=== PATIENT | female | born 1950 | race Caucasian/White ===

== ENCOUNTER 2017-10-11 11:01 | Outpatient (CLI) | payer MEDICARE, BC | END 2017-10-11 11:02 | disposition home or self-care (01) | LOC: BICRAD 11:01 | PROVIDERS: ATTEND Family Medicine | DX: J20.9 Acute bronchitis, unspecified (principal) | CPT/HCPCS: 71046 ==

== ENCOUNTER 2018-02-22 12:53 | Outpatient (CLI) | payer MEDICARE, BC | END 2018-02-22 12:54 | disposition home or self-care (01) | LOC: BICMAMMO 12:53 | PROVIDERS: ATTEND Family Medicine | DX: N63.10 Unspecified lump in the right breast, unspecified quadrant (principal); R92.1 Mammographic calcification found on diagnostic imaging of breast; Z85.43 Personal history of malignant neoplasm of ovary | CPT/HCPCS: 76642; 77066; G0279 ==

== ENCOUNTER 2018-11-23 09:13 | Outpatient (CLI) | payer MEDICARE, BC ==
--- NOTE | 2018-11-23 10:19 | MRI ---
MRI LUMBAR SPINE: History: Lumbar radiculopathy, M54.16. Technique: Multiplanar, multisequence noncontrast enhanced MR images lumbar spine obtained. FINDINGS: T12-L1: Unremarkable. L1-2: Minimal facet hypertrophy seen. The central canal and neural foramina are patent. L2-3: Disc desiccation is seen. There is a broad based disc bulge extending into the left L2-3 neural foramen. The exiting left L2 nerve root is not significantly compressed. L3-4: There is some mild disc desiccation. There is bilateral facet and ligamentum flavum hypertrophy resulting in mild L3-4 central and lateral recess stenosis. Minimal but not significant evidence of neural foraminal narrowing is seen. L4-5: Disc desiccation is seen. Disc space height loss is seen. There is some Modic type I changes se en in the anterior inferior endplate of L4 and superior anterior endplate of L5. There is a broad bas ed disc bulge with bilateral facet and ligamentum flavum hypertrophy resulting in mild to moderate ce ntral and lateral recess stenosis. L5-S1: Disc desiccation is seen. There is mild facet hypertrophy. The central canal is patent. There is moderate left neural foraminal narrowing due to facet hypertrophy. IMPRESSION: Disc space height loss with endplate changes at L4-5. POS: ROSALIA
== END 2018-11-23 09:14 | disposition home or self-care (01) ==
LOC: BICMRI 09:13
PROVIDERS: ATTEND Anesthesiology Pain Medicine
DX: M54.16 Radiculopathy, lumbar region (principal)
CPT/HCPCS: 72148

== ENCOUNTER 2019-04-18 10:44 | Outpatient (CLI) | payer MEDICARE, BC ==
--- NOTE | 2019-04-18 13:46 | MMO ---
Bilateral MAMMO Bilat Screen [facility]. CLINICAL HISTORY: Patient is 68 years old and is seen for screening. The patient has the following family history of breast cancer: sister, at age 60. The patient has a history of ovarian cancer at age 17. VIEWS: The views performed were: bilateral craniocaudal with tomosynthesis and bilateral mediolateral oblique with tomosynthesis. FILMS COMPARED: The present examination has been compared to prior imaging studies performed at [facility] on 06/20/2012, 12/31/2014 and 02/22/2018, and at [facility] on 06/16/2011. MAMMOGRAM FINDINGS: There are scattered fibroglandular densities. There are stable benign appearing calcifications seen in both breasts. There are no suspicious masses, suspicious calcifications, or new areas of architectural distortion. IMPRESSION: THERE IS NO MAMMOGRAPHIC EVIDENCE OF MALIGNANCY. A ROUTINE FOLLOW-UP MAMMOGRAM IN 1 YEAR IS RECOMMENDED. THE RESULTS OF THIS EXAM WERE SENT TO THE PATIENT. ACR BI-RADS Category 2 - Benign finding MAMMOGRAPHY NOTE: 1. A negative mammogram report should not delay a biopsy if a dominant of clinically suspicious mass is present. 2. Approximately 10% to 15% of breast cancers are not detected by mammography. 3. Adenosis and dense breasts may obscure an underlying neoplasm. Reported by: ISABELA OBANDO MD Electonically Signed: [id number]
== END 2019-04-18 10:45 | disposition home or self-care (01) ==
LOC: BICMAMMO 10:44
PROVIDERS: ATTEND Family Medicine
DX: Z12.31 Encounter for screening mammogram for malignant neoplasm of breast (principal); Z85.43 Personal history of malignant neoplasm of ovary; Z80.3 Family history of malignant neoplasm of breast
CPT/HCPCS: 77063; 77067

== ENCOUNTER 2019-06-22 09:56 | Outpatient (CLI) | payer MEDICARE, BC ==
--- NOTE | 2019-06-22 12:04 | MRI ---
MRI cervical spine noncontrast: DATE: 06/22/2019 HISTORY: 68-year-old female with cervical radiculopathy. FINDINGS: Many of the images are degraded by patient motion, especially the T2 weighted axial sequence. Vertebr al body heights are maintained. No major subluxation. No major bone marrow signal abnormality. Mild Modic type I bone marrow changes at C5-6 and C7-T1. Cervical spinal cord is normal in size and signal . Cervical spinal canal is diffusely small in caliber on a congenital basis due to developmentally short pedicles. This is exacerbated by cervical spondylosis. Absent or small left lobe of thyroid gla nd. Facet DJD at left upper cervical spine, moderate to severe at C2-3, and moderate at C3-4 and C5-4-5. Mild to moderate left facet DJD at C7-T1. No high-grade facet DJD on the right side. Disc spa ce narrowing is mild to moderate at C5-6, moderate at C6-C7, and moderate at C7-T1. The C2-3, C3-4, and C4-5 disc spaces are maintained. C2-3: No high-grade central stenosis or high-grade neural foraminal stenosis. C3-4: Bilateral uncinate process osteophytes encroach upon bilateral neural foramina, causing mild bi lateral neural foraminal stenosis. Mild ligamentum flavum thickening. Mild central spinal canal stenosis. C4-5: Small bilateral uncinate process osteophytes encroach upon bilateral neural foramina. Mild to m oderate right neural foraminal stenosis. Moderate left neural foraminal stenosis. Broad-based and central disc-osteophyte complex encroaches upon anterior aspect of spinal canal. Moderate central spi nal canal stenosis. C5-6: Mild broad-based disc-osteophytic bar complex encroaches upon anterior aspect of spinal canal. Mild ligamentum flavum thickening. Moderate sized bilateral uncinate process osteophytes encroach upon bilateral neural foramina, causing severe right neural foraminal stenosis and moderate to severe left neural foraminal stenosis. Moderate to severe central spinal canal stenosis. C6-7: Broad-based disc-osteophytic bar complex abuts the ventral surface of spinal cord. Mild ligamen kellie flavum thickening. Moderate to severe central spinal canal stenosis. Moderate to large bilateral uncinate process osteophytes. Severe bilateral neural foraminal stenosis. C7-T1: No central stenosis. Mild right neural foraminal stenosis. Severe left neural foraminal stenos is. IMPRESSION: 1.) Moderate cervical spondylosis consisting of left upper facet osteoarthrosis, and mid-lower modera te degenerative disc disease. 2) developmentally small caliber spinal canal exacerbated by cervical spondylosis. 3) multilevel high-grade central spinal canal stenosis and multilevel high-grade neural foraminal arcelia nosis.
--- NOTE | 2019-06-22 12:08 | MRI ---
MRI thoracic spine noncontrast: DATE: 06/22/2019 HISTORY: 68-year-old female with "M 48.04 thoracic spinal stenosis " FINDINGS: Vertebral body heights are maintained. No major bone marrow signal abnormality. Multilevel mild to mo derate disc space narrowing at several levels in the mid thoracic spine. No central spinal canal stenosis at any level. Thoracic spinal cord is normal in size and signal. No syringohydromyelia. No h igh-grade neural foraminal stenosis identified. No major pathology of perivertebral spaces identified. No high-grade scoliosis. A few tiny disc protrusions or disc-osteophyte complexes at gato ral levels in at mid and lower thoracic spine, which do not contact spinal cord or frankly impinge on nerve roots. IMPRESSION: 1. Mild thoracic spondylosis. 2. Otherwise negative.
== END 2019-06-22 09:57 | disposition home or self-care (01) ==
LOC: TBSIIMAG 09:56
PROVIDERS: ATTEND Anesthesiology Pain Medicine
DX: M47.22 Other spondylosis with radiculopathy, cervical region (principal); M48.04 Spinal stenosis, thoracic region; M48.02 Spinal stenosis, cervical region; M47.814 Spondylosis without myelopathy or radiculopathy, thoracic region; M48.03 Spinal stenosis, cervicothoracic region
CPT/HCPCS: 72141; 72146

== ENCOUNTER 2019-10-17 12:57 | Outpatient (CLI) | payer MEDICARE, BC ==
--- NOTE | 2019-10-17 14:49 | ULT ---
THYROID ULTRASOUND INDICATION: History of thyroid nodule and left-sided thyroidectomy TECHNIQUE: Grayscale and color Doppler images were obtained of the thyroid gland. COMPARISON: Prior thyroid ultrasound dated July 23, 2003 FINDINGS: Right thyroid lobe: The right thyroid lobe measures 1.8 x 2.0 x 4.5 cm. There is a 2.7 x 1.5 x 2.1 cm isoechoic solid nodule with well-defined borders within the inferior pole the right thyroid lobe. The lesion is wider than it is tall without associated calcifications. This is consistent with a AMIRA DS 3 lesion. There is an additional 5 x 4 x 3 mm solid, isoechoic nodule within the right mid thyroid lobe consistent with a TIRADS 3 lesion. Thyroid isthmus: The thyroid isthmus measures 0.41 cm. Left thyroid lobe: Surgically absent IMPRESSION: 1. New TIRADS 3 lesion involving the inferior pole of the right thyroid lobe. This lesion is 2.7 cm i n size. Recommend consideration for ultrasound-guided FNA. 2. 5 mm TIRADS 3 lesion within the mid right thyroid gland. No additional follow-up is recommended. 3. Left thyroidectomy
== END 2019-10-17 12:58 | disposition home or self-care (01) ==
LOC: BICULT 12:57
PROVIDERS: ATTEND Internal Medicine Endocrinology, Diabetes & Metabolism
DX: E04.1 Nontoxic single thyroid nodule (principal); E07.9 Disorder of thyroid, unspecified; Z85.850 Personal history of malignant neoplasm of thyroid
CPT/HCPCS: 76536

== ENCOUNTER 2019-11-07 12:42 | Outpatient (CLI) | payer MEDICARE, BC ==
--- NOTE | 2019-11-07 13:45 | MMO ---
Right Breast MAMMO Unilat Diag [facility]. CLINICAL HISTORY: Patient is 69 years old and is seen for diagnostic exam. The patient has the following family history of breast cancer: sister, at age 60. The patient has a history of ovarian cancer at age 17. VIEWS: The views performed were: right craniocaudal with tomosynthesis; right mediolateral oblique with tomosynthesis; right mediolateral with tomosynthesis; and right exaggerated craniocaudal. FILMS COMPARED: The present examination has been compared to prior imaging studies performed at [facility] on 12/31/2014, 02/22/2018, 04/18/2019 and 11/07/2019. This study has been interpreted with the assistance of computer-aided detection. MAMMOGRAM FINDINGS: There are scattered fibroglandular densities. There are no suspicious masses, suspicious calcifications, or new areas of architectural distortion. There are no mammographic or sonographic abnormalities to explain the patient's breast pain. The patient is referred back to her clinician. Negative imaging findings should not preclude biopsy if clinical findings are suspicious. IMPRESSION: THERE IS NO MAMMOGRAPHIC EVIDENCE OF MALIGNANCY. THE RESULTS OF THIS EXAM WERE SENT TO THE PATIENT. ACR BI-RADS Category 1 - Negative MAMMOGRAPHY NOTE: 1. A negative mammogram report should not delay a biopsy if a dominant of clinically suspicious mass is present. 2. Approximately 10% to 15% of breast cancers are not detected by mammography. 3. Adenosis and dense breasts may obscure an underlying neoplasm. Reported by: ISABELA OBANDO MD Electonically Signed: [id number]
--- NOTE | 2019-11-07 14:40 | ULT ---
LIMITED RIGHT BREAST ULTRASOUND: Date: 11/07/2019 PROVIDED CLINICAL HISTORY: Focal right breast and axillary pain. FINDINGS: Limited sonographic interrogation of the right breast is performed in the regions of patient pain. No sonographic abnormality is evident. Appearance of hypoechoic mass in the right axilla on transverse images does not persist in longitudinal or at real-time imaging. IMPRESSION: BI-RADS Category 1 - Negative. No sonographic or mammographic findings are evident to explain the pat ient's pain. Negative imaging findings should not preclude further evaluation of a clinically suspici ous finding. The patient is referred back to her clinician. POS: OFF
== END 2019-11-07 12:43 | disposition home or self-care (01) ==
LOC: BICMAMMO 12:42
PROVIDERS: ATTEND Family Medicine
DX: R22.31 Localized swelling, mass and lump, right upper limb (principal)
CPT/HCPCS: 76642; 77065; G0279

== ENCOUNTER 2020-03-11 12:41 | Outpatient (CLI) | payer MEDICARE, BC ==
--- NOTE | 2020-03-11 13:30 | MMO ---
Bilateral MAMMO Bilat Diag [facility]. CLINICAL HISTORY: Patient is 69 years old and is seen for diagnostic exam,palpable abnormality and pain in the right breast. The patient has the following family history of breast cancer: sister, at age 60. The patient has a history of ovarian cancer at age 17. VIEWS: The views performed were: bilateral craniocaudal with tomosynthesis; bilateral mediolateral oblique with tomosynthesis; and bilateral mediolateral with tomosynthesis. FILMS COMPARED: The present examination has been compared to prior imaging studies performed at [facility] on 04/18/2019, 11/07/2019 and 03/11/2020. This study has been interpreted with the assistance of computer-aided detection. MAMMOGRAM FINDINGS: There are scattered fibroglandular densities. Benign calcifications are noted. No mammographic or sonograhic abnormality is seen at the site of palpable concern in the left breast. There are no suspicious masses, suspicious calcifications, or new areas of architectural distortion. IMPRESSION: THERE IS NO MAMMOGRAPHIC EVIDENCE OF MALIGNANCY. A ROUTINE FOLLOW-UP MAMMOGRAM IN 1 YEAR IS RECOMMENDED. THE RESULTS OF THIS EXAM WERE SENT TO THE PATIENT. ACR BI-RADS Category 2 - Benign finding MAMMOGRAPHY NOTE: 1. A negative mammogram report should not delay a biopsy if a dominant of clinically suspicious mass is present. 2. Approximately 10% to 15% of breast cancers are not detected by mammography. 3. Adenosis and dense breasts may obscure an underlying neoplasm. Reported by: ETHEL COOK MD Electonically Signed: [id number]
--- NOTE | 2020-03-11 14:19 | ULT ---
LIMITED LEFT BREAST ULTRASOUND: 03/11/20 HISTORY: Pain and palpable abnormality of the 11 o'clock position of the left breast. FINDINGS: Correlation is made to mammogram of same date. Sonographic evaluation of the region of concern at the 11 o'clock positon of the left breast demonstr ates no abnormality. IMPRESSION: BIRADS 2: Benign Finding(s) Routine annual screening mammography (for women over age 40).
== END 2020-03-11 12:42 | disposition home or self-care (01) ==
LOC: BICMAMMO 12:41
PROVIDERS: ATTEND Family Medicine
DX: N63.20 Unspecified lump in the left breast, unspecified quadrant (principal)
CPT/HCPCS: 76642; 77066; G0279

== ENCOUNTER 2020-03-11 12:44 | Outpatient (CLI) | payer MEDICARE, BC ==
--- NOTE | 2020-03-11 14:19 | MRI ---
MR the lumbar spine without contrast INDICATION: 69-year-old female with acute low back pain that radiates down the left leg. The left leg radiculopathy has been present for one month. No recent trauma or lumbar spinal surgery reported. COMPARISON: MR the lumbar spine dated November 23, 2018 TECHNIQUE: Multiplanar multisequence MR images were obtained of lumbar spine without IV contrast. FINDINGS: Bone marrow: There is mild Modic endplate degenerative change at L4-5 that appears similar to the lemuel or. Distal spinal cord and conus: Normal. The conus seen to terminate at L1. Visualized retroperitoneum and paraspinal soft tissues: Normal. Vertebral levels: L5-S1: There is an asymmetric to the left broad-based disc bulge at L5-S1 with loss of disc space hei ght and facet hypertrophy inducing mild left neural foraminal narrowing which is stable to the prior exam.. L4-5: There is a broad-based disc osteophyte complex with facet hypertrophy and ligamentum flavum hyp ertrophy inducing mild central canal narrowing which is stable to the prior exam. There is grade 1 anterolisthesis of L4 and L5. Constellation of findings induces mild right neural foraminal narrowing which is stable to the prior exam. L3-4: There is a broad-based bulge with facet hypertrophy and ligament flavum hypertrophy inducing mi ld central canal narrowing with mild bilateral neural foraminal narrowing, left greater than right. This is stable to the prior exam. L2-3: There is a broad-based disc bulge with facet hypertrophy inducing mild central canal narrowing with mild bilateral neural foraminal narrowing, left greater than right. This is stable to the prior exam. L1-L2: No appreciable central canal or neuroforaminal narrowing. T12-L1: No appreciable central canal or neuroforaminal narrowing. IMPRESSION: 1. Stable moderate spondylosis of the lumbar spine. 2. Stable mild central canal narrowing at L2-3 through L4-5. 3. Stable mild neural foraminal narrowing as detailed above.
== END 2020-03-11 12:45 | disposition home or self-care (01) ==
LOC: BICMRI 12:44
PROVIDERS: ATTEND Anesthesiology Pain Medicine
DX: M47.26 Other spondylosis with radiculopathy, lumbar region (principal); M48.061 Spinal stenosis, lumbar region without neurogenic claudication; M48.07 Spinal stenosis, lumbosacral region
CPT/HCPCS: 72148

== ENCOUNTER 2020-06-20 05:47 | Day surgery (SDC) | payer MEDICARE, BC ==
[2020-06-16 15:12] VITALS: BMI 19.3
--- NOTE | 2020-06-19 12:31 | HP ---
HISTORY OF PRESENT ILLNESS: Ms. Dillon is a very pleasant 69-year-old woman known to our office for distant evaluation of lower back pain, who returns now with a request of Dr. Strange. My impression was regarding cervical stenosis, but she states she has no concern regarding her neck that is in fact her lower back and left lower extremity describing to me a pattern that best fits the L5 dermatome. She has no right lower extremity pains to speak of. She has been receiving injections in her back which provides her 7 to 10 days worth of relief in the leg, but then her pain returns. MRI from February of 2020 reveals moderate to severe lateral recess stenosis bilaterally at L5 as well as moderate foraminal stenosis bilaterally at L5. This could most certainly be a contributor to her pains particularly when considering the efficacy of her epidural steroid injection. PAST MEDICAL HISTORY: Significant for chronic pain syndrome, seasonal allergies, thyroid tumor. PAST SURGICAL HISTORY: Thyroid mass resection, left oophorectomy, hysterectomy, and urethral meatotomy. ALLERGIES: TO CODEINE, IODINE, SULFA DRUGS. CURRENT MEDICATIONS: 1. Tizanidine. 2. Biotin. 3. Lyrica. 4. [place]. 5. Clonazepam. PHYSICAL EXAMINATION: Deferred secondary to COVID telehealth visit. DIAGNOSIS: Lumbar radiculopathy. PLAN: Dr. Martin met with the patient, reviewed her imaging and advocated for an L4-5 decompression and a left L5 foraminotomy. He explained to the patient the risks, benefits, and alternatives to the procedure. The patient expressed understanding and elected to move forward with surgery as discussed. I do believe the patient is mentally competent and capable of making medical decisions for herself. We will move forward with surgery as planned. Job ID: [id number]
[2020-06-20] MEDS ORDERED: Bupivacaine HCl 0.5%/Epinephrine 1:200,000/PF 30 ml Vial ONE (06:15)
[2020-06-20] MEDS ORDERED: Thrombin 5000 UNITS/5 ML VIAL ONE (06:15)
[2020-06-20 06:53] LABS: #Basophils 0.1 thou/uL (0.0-0.2); #Eosinphils 0.4 thou/uL (0.0-0.7); #Lymphocytes 2.9 thou/uL (1.20-3.40); #Monocytes 0.9 thou/uL (0.11-0.59); %Basophils 1.2 % (0.0-1.0); %Lymphocytes 40.2 % (21.0-51.0); %Monocytes 12.2 % (0.0-10.0); %Neutrophils 41.4 % (42.0-75.0); Hemoglobin 12.8 g/dL (12.0-16.0); Mean Corpuscular HGB CONC 32.1 g/dL (32.0-36.0); Mean Corpuscular Hemoglobin 31.1 pg (27.0-31.0); Mean Corpuscular Volume 96.9 fL (78.0-98.0); Mean Platelet Volume 7.2 fL (7.4-10.4); Platelet Count 329 thou/uL (130-400); RBC Distribution Width 13.5 % (11.5-14.5); White Blood Cell (WBC) Count 7.2 thou/uL (4.8-10.8)
[2020-06-20 07:16] LABS: Anion Gap 12 mmol/L (10-20); BUN (Urea Nitrogen) 21 mg/dL (9.8-20.1); Calc. Creatinine Clearance 37 mL/min (70-130); Calcium 8.6 mg/dL (7.8-10.44); Carbon Dioxide 24 mmol/L (23-31); Chloride 111 mmol/L (98-107); Estimated GFR-MDRD 56; Glucose 96 mg/dL (83-110); Sodium 143 mmol/L (136-145)
[2020-06-20] MEDS ORDERED: Fentanyl 100 MCG/2 ML VIAL ONE (07:29)
[2020-06-20] MEDS ORDERED: Morphine 4 MG/ML VIAL ONE (08:26)
--- NOTE | 2020-06-20 09:52 | OP ---
DATE OF PROCEDURE: 06/20/2020 SCHEDULING MANAGER: Israel East PA-C INDICATION: Pain. DIAGNOSIS: Lumbar radiculopathy. PROCEDURES PERFORMED: L4-L5 lateral recess decompression, left L5 foraminotomy. ANESTHESIA: General. DESCRIPTION OF PROCEDURE: The patient was brought into the operating room and placed under general anesthesia. She was flipped from the supine to prone position on the operating room table. A linear incision was planned at the L4-L5 segment. After prepping and draping and after an appropriate preoperative pause, the incision was created. The soft tissues were swept left of midline. A self-retaining retractor was placed in the wound for optimal exposure. After confirming the appropriate level with C-arm fluoroscopy, high-speed cutting drill bit as well as 2, 3, and 4 mm Kerrisons were used to perform a laminectomy along the inferior aspect of L4 and the superior aspect of L5. After decompressing the lateral recesses at the L4-L5 segment, foraminotomy was performed along the proximal aspect of L5 on the left to decompress the exiting L5 nerve root. After completing the decompression, the wound was irrigated. Hemostasis was maintained throughout. The wound was then closed in anatomic layers, and a pressure dressing was applied. There were no known procedural complications. Job ID: [id number]
[2020-06-20] MEDS ORDERED: Ketorolac Tromethamine 30 MG/ML VIAL ONE (10:31)
[2020-06-20] MEDS ORDERED: traMADol HCl 50 MG TAB ONE (10:31)
== END 2020-06-20 11:45 | disposition home or self-care (01) ==
LOC: SDC 05:47
PROVIDERS: ATTEND Neurological Surgery
PROC: 01NB0ZZ Release Lumbar Nerve, Open Approach (ICD-10-PCS; principal; 2020-06-20)
DX: M54.16 Radiculopathy, lumbar region (principal); M48.061 Spinal stenosis, lumbar region without neurogenic claudication; G89.4 Chronic pain syndrome; E89.0 Postprocedural hypothyroidism; Z79.899 Other long term (current) drug therapy; Z88.2 Allergy status to sulfonamides; Z88.5 Allergy status to narcotic agent; Z91.041 Radiographic dye allergy status
CPT/HCPCS: 36415; 76000; 80048; 85025; 93005; 93010; J0670; J0690; J1885; J2270; J3010

== ENCOUNTER 2020-07-01 05:35 | Emergency (ER) | payer MEDICARE, BC ==
[2020-07-01] MEDS ORDERED: diphenhydrAMINE 50 MG/ML VIAL ONE ×2 (06:09→06:10)
[2020-07-01] MEDS ORDERED: Metoclopramide HCl 10 MG/2 ML VIAL ONE (06:09)
[2020-07-01 06:20] LABS: #Lymphocytes 1.7 thou/uL (1.20-3.40); #Monocytes 0.7 thou/uL (0.11-0.59); #Neutrophils 9.3 thou/uL (1.40-6.50); %Basophils 0.3 % (0.0-1.0); %Eosinophils 0.2 % (0.0-10.0); %Lymphocytes 14.7 % (21.0-51.0); %Monocytes 5.8 % (0.0-10.0); Hemoglobin 12.2 g/dL (12.0-16.0); Mean Corpuscular HGB CONC 32.6 g/dL (32.0-36.0); Mean Corpuscular Volume 95.2 fL (78.0-98.0); Mean Platelet Volume 7.2 fL (7.4-10.4); Platelet Count 391 thou/uL (130-400); RBC Distribution Width 13.1 % (11.5-14.5); Red Blood Cell (RBC) Count 3.94 mill/uL (4.20-5.40); White Blood Cell (WBC) Count 11.7 thou/uL (4.8-10.8)
[2020-07-01 06:49] LABS: ALT (SGPT) 7 U/L (8-55); AST (SGOT) 13 U/L (5-34); Albumin 3.7 g/dL (3.4-4.8); Alkaline Phosphatase 77 U/L (40-110); Anion Gap 15 mmol/L (10-20); BUN (Urea Nitrogen) 13 mg/dL (9.8-20.1); Bilirubin, Total 0.4 mg/dL (0.2-1.2); Calc. Creatinine Clearance 0 mL/min (70-130); Calcium 8.3 mg/dL (7.8-10.44); Carbon Dioxide 22 mmol/L (23-31); Chloride 105 mmol/L (98-107); Estimated GFR-MDRD 55; Globulin 2.8 g/dL (2.4-3.5); Glucose 157 mg/dL (83-110); Potassium 3.7 mmol/L (3.5-5.1); Protein, Total 6.5 g/dL (6.0-8.3); Sodium 138 mmol/L (136-145)
[2020-07-01] MEDS ORDERED: Labetalol HCl 100 MG/20 ML VIAL ONE (06:55)
[2020-07-01] MEDS ORDERED: Ketorolac Tromethamine 30 MG/ML VIAL ONE (06:55)
--- NOTE | 2020-07-01 07:07 | CT ---
CT OF THE BRAIN WITHOUT CONTRAST: DATE: 07/01/2020 HISTORY: Headaches for 2 days. COMPARISON: MRI brain dated 04/10/2018. TECHNIQUE: Multiple contiguous axial images were obtained in a CT of the brain without contrast. FINDINGS: The brain is normal in morphology and attenuation without focal lesions or confluent areas of infarct ion. There is no evidence of hydrocephalus, intracranial hemorrhage, or extra-axial fluid collection. The calvarium and overlying soft tissues are unremarkable. The visualized paranasal sinuses and masto id air cells are well aerated. IMPRESSION: No evidence of acute intracranial abnormality. POS: EAA
--- NOTE | 2020-07-01 07:34 | CT ---
CT lumbar spine noncontrast HISTORY: Low back pain. Recent surgery. FINDINGS: Vertebral body heights and alignment are maintained. L5 left laminectomy defect consistent with histologically described recent surgery. No adjacent fluid collections. Osteophytosis throughout the vertebral bodies and facets with multilevel disc bulges. Central canal s tenosis most severe at the L4-5 level. Foraminal stenoses greatest on the right at the L4-5 level in the left at the L5-S1 level. Images including the retroperitoneum show calcification of the arterial structures and bilateral comm on iliac artery stents. IMPRESSION : Recent postoperative changes lower lumbar spine. No evidence of complication. Prominent degenerative changes including significant central canal and foraminal stenoses, better det do on recent MRI. Atherosclerosis.
== END 2020-07-01 08:40 | disposition home or self-care (01) ==
LOC: ERS 05:35
DX: R51.9 Headache, unspecified (principal); F17.290 Nicotine dependence, other tobacco product, uncomplicated
CPT/HCPCS: 36415; 70450; 72131; 80053; 85025; J1200; J1885; J2765

== ENCOUNTER 2020-07-01 16:41 | Emergency (ER) | payer MEDICARE, BC, OTHER ==
[2020-07-01 18:51] LABS: #Lymphocytes 2.1 thou/uL (1.20-3.40); #Neutrophils 8.8 thou/uL (1.40-6.50); %Basophils 0.3 % (0.0-1.0); %Eosinophils 0.3 % (0.0-10.0); %Lymphocytes 17.3 % (21.0-51.0); %Monocytes 8.2 % (0.0-10.0); %Neutrophils 73.9 % (42.0-75.0); Hemoglobin 12.2 g/dL (12.0-16.0); Mean Corpuscular HGB CONC 33.2 g/dL (32.0-36.0); Mean Corpuscular Hemoglobin 31.3 pg (27.0-31.0); Mean Corpuscular Volume 94.3 fL (78.0-98.0); Mean Platelet Volume 7.1 fL (7.4-10.4); Platelet Count 361 thou/uL (130-400); RBC Distribution Width 13.1 % (11.5-14.5); Red Blood Cell (RBC) Count 3.89 mill/uL (4.20-5.40)
[2020-07-01] MEDS ORDERED: Metoclopramide HCl 10 MG/2 ML VIAL ONE (18:54)
[2020-07-01] MEDS ORDERED: Labetalol HCl 100 MG/20 ML VIAL ONE (18:54)
[2020-07-01] MEDS ORDERED: diphenhydrAMINE 50 MG/ML VIAL ONE ×3 (18:54→19:06)
[2020-07-01] MEDS ORDERED: Ketorolac Tromethamine 30 MG/ML VIAL ONE (18:54)
[2020-07-01] MEDS ORDERED: Acetaminophen 500 MG TAB ONE (18:55)
[2020-07-01 19:16] LABS: Bilirubin Negative (Negative); Blood, Urine 1+ (Negative); Clarity Clear (Clear); Glucose, Urine (Dipstick) Normal (Negative); Ketone, Urine Negative (Negative); Leukocyte 500 Leu/uL (Negative); Nitrite Negative (Negative); Protein, Urine (Dipstick) Negative (Neg-Trace); Specific Gravity, Urine 1.012 (1.002-1.036); Squamous Epithelial 0-3 HPF (0-3); Urobilinogen Normal mg/dL (Less than 2); WBC/HPF Greater than 50 HPF (0-3)
[2020-07-01 19:18] LABS: Bacteria/HPF 1+ HPF (None Seen)
[2020-07-01 19:21] LABS: ALT (SGPT) 8 U/L (8-55); AST (SGOT) 14 U/L (5-34); Albumin 3.8 g/dL (3.4-4.8); Alkaline Phosphatase 77 U/L (40-110); Anion Gap 13 mmol/L (10-20); BUN (Urea Nitrogen) 13 mg/dL (9.8-20.1); Bilirubin, Total 0.4 mg/dL (0.2-1.2); Calc. Creatinine Clearance 0 mL/min (70-130); Calcium 8.2 mg/dL (7.8-10.44); Carbon Dioxide 23 mmol/L (23-31); Chloride 105 mmol/L (98-107); Estimated GFR-MDRD 63; Globulin 2.5 g/dL (2.4-3.5); Glucose 125 mg/dL (83-110); Potassium 3.7 mmol/L (3.5-5.1); Protein, Total 6.3 g/dL (6.0-8.3); Sodium 137 mmol/L (136-145)
[2020-07-01] MEDS ORDERED: Magnesium 2 GM/50 ML BAG (IN WATER) ONE (20:11)
[2020-07-01] MEDS ORDERED: methylPREDNISolone Sod Succ/PF 125 MG/2 ML VIAL ONE (20:11)
[2020-07-01] MEDS ORDERED: cefTRIAXone\\ROCEPHIN 1 GM VIAL ONE (21:28)
[2020-07-02 16:09] LABS: SARS-CoV-2 MS2 Positive; SARS-CoV-2 N Gene Negative; SARS-CoV-2 S Gene Negative; SARS-CoV-2 by NAA Not Detected (NotDetected); SARS-CoV-2 orf1ab Negative
== END 2020-07-01 22:08 | disposition home or self-care (01) ==
LOC: ERS 16:41
DX: R51.9 Headache, unspecified (principal); N39.0 Urinary tract infection, site not specified; R50.9 Fever, unspecified; Z20.828 Contact with and (suspected) exposure to other viral communicable diseases; F17.290 Nicotine dependence, other tobacco product, uncomplicated; Z79.899 Other long term (current) drug therapy
CPT/HCPCS: 70450; 72131; 80053 ×2; 85025 ×2; 87077; 87086; 87186; U0003; 36415; 81003; 81015; 87635; 96365; 96366; 96367; 96375; J0696; J1200; J1885; J2765; J2930; J3475

== ENCOUNTER 2020-07-15 09:28 | Observation (INO) | payer MEDICARE, BC ==
[2020-07-15 10:08] LABS: #Basophils 0.1 thou/uL (0.0-0.2); #Eosinphils 0.2 thou/uL (0.0-0.7); #Lymphocytes 2.5 thou/uL (1.20-3.40); #Monocytes 0.6 thou/uL (0.11-0.59); %Basophils 1.1 % (0.0-1.0); %Eosinophils 2.5 % (0.0-10.0); %Lymphocytes 33.6 % (21.0-51.0); %Monocytes 8.2 % (0.0-10.0); %Neutrophils 54.6 % (42.0-75.0); Hemoglobin 13.2 g/dL (12.0-16.0); Mean Corpuscular HGB CONC 33.2 g/dL (32.0-36.0); Mean Corpuscular Volume 96.5 fL (78.0-98.0); Mean Platelet Volume 7.2 fL (7.4-10.4); Platelet Count 364 thou/uL (130-400); RBC Distribution Width 13.1 % (11.5-14.5); Red Blood Cell (RBC) Count 4.14 mill/uL (4.20-5.40); White Blood Cell (WBC) Count 7.4 thou/uL (4.8-10.8)
[2020-07-15 10:29] LABS: Acetaminophen Less than 6.0 mcg/mL (10.0-30.0); Alcohol Less than 10 mg/dL (Less than 10); Salicylate Less than 8.0 mg/dL (15.0-30.0)
[2020-07-15 10:32] LABS: ALT (SGPT) 14 U/L (8-55); AST (SGOT) 19 U/L (5-34); Albumin 3.9 g/dL (3.4-4.8); Alkaline Phosphatase 65 U/L (40-110); Anion Gap 16 mmol/L (10-20); BUN (Urea Nitrogen) 11 mg/dL (9.8-20.1); Bilirubin, Total 0.3 mg/dL (0.2-1.2); Calc. Creatinine Clearance 0 mL/min (70-130); Calcium 8.8 mg/dL (7.8-10.44); Carbon Dioxide 25 mmol/L (23-31); Chloride 104 mmol/L (98-107); Estimated GFR-MDRD 55; Globulin 2.8 g/dL (2.4-3.5); Glucose 89 mg/dL (83-110); Potassium 3.7 mmol/L (3.5-5.1); Protein, Total 6.7 g/dL (6.0-8.3); Sodium 141 mmol/L (136-145)
--- NOTE | 2020-07-15 10:47 | CT ---
EXAM: CT Brain WO Con PROVIDED CLINICAL HISTORY: Altered mental status COMPARISON: 07/01/2020 FINDINGS: The ventricular system is normal in size and morphology. There is no evidence for intracranial hemorr nel or mass effect. There is a focal area of apparent hypodensity involving the right medial temporal lobe on a single axial slice, presumably artifactual. The extracranial soft tissues and osse ous structures demonstrate an unremarkable CT appearance. IMPRESSION: No evidence for intracranial hemorrhage or mass effect.
[2020-07-15 10:50] LABS: Bilirubin Negative (Negative); Blood, Urine Negative (Negative); Clarity Clear (Clear); Glucose, Urine (Dipstick) Normal (Negative); Ketone, Urine Negative (Negative); Leukocyte Negative Leu/uL (Negative); Nitrite Negative (Negative); Protein, Urine (Dipstick) Negative (Neg-Trace); Specific Gravity, Urine 1.015 (1.002-1.036); Urobilinogen Normal mg/dL (Less than 2); pH, Urine 5.5 (5.0-9.0)
--- NOTE | 2020-07-15 10:50 | RAD ---
PORTABLE CHEST 1 VIEW: Date: 07/15/2020 Time: 0954 hours HISTORY: Altered mental status. COMPARISON: 09/13/2018. FINDINGS: The heart size is normal. The aorta is tortuous. The lungs are expanded without lobar consolidation, pneumothoraces, or pleural effusions. IMPRESSION: No radiographic evidence of acute cardiopulmonary process. POS: AH
[2020-07-15 10:55] LABS: Amphetamine Not Detected (NotDetected); Barbiturates Screen Not Detected (NotDetected); Benzodiazepine Screen Detected (NotDetected); Cocaine Metabolite Screen Not Detected (NotDetected); Medtox Control Line Valid? VALID (VALID); Medtox Reader # READER 4; Methadone Not Detected (NotDetected); Methamphetamine Not Detected (NotDetected); Opiate Screen Detected (NotDetected); Oxycodone Screen Not Detected (NotDetected); Phencyclidine (PCP) Not Detected (NotDetected); THC/Cannabinoid Screen Not Detected (NotDetected); Tricyclic Screen Not Detected (NotDetected)
--- NOTE | 2020-07-15 11:44 | PDOC.FPRHP ---
- History of Present Illness Chief Complaint: AMS History of Present Illness: Pt is a 69yo female w/ PMH of chronic pain, thyroid mass and ovarian cancer who presents to ED for evaluation of confusion. Pt reports that she got in an argument with her and he told her "you need to go get your brain checked". She got angry and drove off. She states she tried to go to her PCP, Dr. Medeiros's, office but they were not able to see her so she went to the ED. Upon discussion with the front office staff of Dr Koehler's office, this is not accurate. Patient also did not remember she had been to the ED more than once recently- for HENAO and HTN. Patient's daughter was in the room and said that her mother has had problems with memory and personality changes for the past year. She has become more angry, combative and secretive. She does not tell her family what medications she is taking and said "I have 3 bottles of pain meds hidden around the house". Pt states she handles all of her medications herself and says she has been taking them as prescribed. Although she can't name which medications she is on. She sees Dr Strange for chronic pain management, including injections and outpatient prescriptions of opioids. ED Course: aspirin 325, 1L NS - Allergies/Adverse Reactions Allergies Allergy/AdvReac Type Severity Reaction Status Date / Time codeine Allergy Verified 06/16/20 15:12 iodine Allergy Verified 06/16/20 15:12 Sulfa (Sulfonamide Allergy Verified 06/16/20 15:12 Antibiotics) - Home Medications Medication Instructions Recorded Confirmed Type HYDROcodone/Acetaminophen 1 each PO Q6HR PRN 06/16/20 07/15/20 History [Hydrocodon-Acetaminophn 10-325] PARoxetine HCl [Paxil] 40 mg PO HS 06/16/20 07/15/20 History Pentoxifylline 400 mg PO BID 06/16/20 07/15/20 History Pregabalin [Lyrica] 25 mg PO Q8HR 06/16/20 07/15/20 History Sertraline HCl [Zoloft] 25 mg PO DAILY 06/16/20 07/15/20 History tiZANidine HCl [Tizanidine HCl] 4 mg PO Q8HR 06/16/20 07/15/20 History Atorvastatin Calcium [Lipitor] 10 mg PO HS 07/15/20 07/15/20 History Cephalexin [Keflex] 500 mg PO TID 07/15/20 07/15/20 History Ciprofloxacin HCl 500 mg PO BID 07/15/20 07/15/20 History Nicotine Polacrilex [Nicorette Gum] 4 mg BUC Q2HR PRN 07/15/20 07/15/20 History Ondansetron [Zofran ODT] 4 mg PO TID PRN 07/15/20 07/15/20 History Progesterone, Micronized 100 mg PO HS 07/15/20 07/15/20 History [Progesterone] Tamsulosin HCl [Flomax] 0.4 mg PO DAILY 07/15/20 07/15/20 History traMADol HCl [Tramadol HCl] 50 mg PO QID PRN 07/15/20 07/15/20 History valACYclovir HCl [Valacyclovir] 1,000 mg PO DAILY PRN 07/15/20 07/15/20 History - History Patient is a poor historian, some information was gathered from old records. PMHx: thyroid mass, ovarian cancer, tobacco abuse PSHx: hysterectomy, spine surgery 06/20/20, thyroid resection FHx: 2 brother with MS, sisters with heart problems Social: smokes 3 cigars a day, used to smoke 1/2 ppd cigarettes, smoking since age 25. Denies alcohol or drug use. Lives with - Review of Systems General: denies: fever/chills, weight/appetite/sleep changes Eyes: denies: vision changes ENT: denies: nasal congestion, rhinorrhea Respiratory: denies: cough, congestion, shortness of breath Cardiovascular: denies: chest pain, edema Gastrointestinal: denies: nausea, vomiting, diarrhea Genitourinary: denies: dysuria Skin: denies: rashes Musculoskeletal: reports: pain (lower back) Neurological: denies: numbness, syncope - Vital signs BP: 157/78, HR 64, RR 16, O2 95% on RA, T 98.1F Wt 44.45kg - Physical Exam Constitutional: NAD, awake, alert and oriented HEENT: normocephalic and atraumatic, grossly normal vision, grossly normal hear ing Neck: supple, FROM Heart: RRR, normal S1/S2, no murmurs/rubs/gallops, no edema Lungs: CTAB, no respiratory distress Abdomen: soft, non-tender, no masses/distention -Abdomen: renal bruit heard on auscultation Musculoskeletal: normal structure, normal tone -Musculoskeletal: no tenderness on palpation of spinal processes Neurological: no focal deficit, CN II-XII intact, normal sensation -Neurological: MMSE 27/30 Skin: no rash/lesions, capillary refill <2 seconds, no jaundice Heme/Lymphatic: no unusual bruising or bleeding -Psychiatric: poor memory, poor insight FMR H&P: Results - Labs Result Diagrams: 07/15/20 09:59 07/15/20 09:59 Lab results: WBC 7.4 thou/uL (4.8-10.8) 07/15/20 09:59 Hgb 13.2 g/dL (12.0-16.0) 07/15/20 09:59 Hct 39.9 % (36.0-47.0) 07/15/20 09:59 MCV 96.5 fL (78.0-98.0) 07/15/20 09:59 Plt Count 364 thou/uL (130-400) 07/15/20 09:59 Neutrophils % 54.6 % (42.0-75.0) 07/15/20 09:59 ESR Westergren 14 mm/hr (Less than 30) 07/15/20 09:59 Sodium 141 mmol/L (136-145) 07/15/20 09:59 Potassium 3.7 mmol/L (3.5-5.1) 07/15/20 09:59 Chloride 104 mmol/L (98-107) 07/15/20 09:59 Carbon Dioxide 25 mmol/L (23-31) 07/15/20 09:59 BUN 11 mg/dL (9.8-20.1) 07/15/20 09:59 Creatinine 1.00 mg/dL (0.6-1.1) 07/15/20 09:59 Glucose 89 mg/dL (83-110) 07/15/20 09:59 Lactic Acid 1.8 mmol/L (0.5-2.2) 07/15/20 10:21 Calcium 8.8 mg/dL (7.8-10.44) 07/15/20 09:59 Total Bilirubin 0.3 mg/dL (0.2-1.2) 07/15/20 09:59 AST 19 U/L (5-34) 07/15/20 09:59 ALT 14 U/L (8-55) 07/15/20 09:59 Alkaline Phosphatase 65 U/L (40-110) 07/15/20 09:59 Creatine Kinase 85 U/L (29-168) 07/15/20 09:59 C-Reactive Protein Less than 0.50 mg/dL (= or < 0.5) 07/15/20 09:59 Serum Total Protein 6.7 g/dL (6.0-8.3) 07/15/20 09:59 Albumin 3.9 g/dL (3.4-4.8) 07/15/20 09:59 Urine Ketones Negative mg/dL (Negative) 07/15/20 10:18 Urine Blood Negative (Negative) 07/15/20 10:18 Urine Nitrite Negative (Negative) 07/15/20 10:18 Ur Leukocyte Esterase Negative Loki/uL (Negative) 07/15/20 10:18 - EKG Interpretation EKG: reviewed, NSR - Radiology Interpretation CT scan - head Status: report reviewed by me Chest x-ray Status: report reviewed by me FMR H&P: A/P - Plan #Encephalopathy 2/2 unknown etiology -Brain CT: no hemorrhage or mass effect -no signs of infection: CXR stable, VSS, WBC, CRP, UA: WNL -likely due to polypharmacy, but cannot exclude neurocognitive disease -PDMP: norco 10, clonazepam, lyrica prescribed by Dr Strange, long history. Tramadol prescribed by [facility] one time on 06/20/20 -will hold opioids and benzos to assess mental status -ASE protocol for benzo withdrawal -if mentation does not improve, consider MRI -called Dr Koehler's office to get information on chronic medical problems and medications, awaiting a call back -pending: B12, thiamine, RPR #thyroid mass s/p thyroid resection of left lobe -per chart review, had another lesion noted on R side and was suggested she get FNA, unsure if done -TSH 5.16, pending free T4 #Elevated BP w/ no diagnosis of HTN -renal bruit heard on exam -will continue to monitor BP and consider ordering US PCP: Rodo Code: Full code pending evaluation of competency. Pt stated she wanted to be DNR, daughter at bedside said that she changes her mind frequently. Patient dose not seem to have appreciation for current illness and has poor insight. IVF: SL Diet: HH Dispo: Admit stroke obs, will hold home pain meds and benzos, continue to monitor mentation. LOS<48hrs. FMR H&P: Upper Level - Pertinent history Pt is a 69 yo female with PMH significant for chronic back pain s/p spinal surgery earlier this month, thyroidectomy who presents to the ED with changing mentation significantly over the past few weeks but noted by pt's daughter for 1 year. She has been taking opioid medication, benzodiazepines. She sees Dr. Martin for her neurosurgery, Dr. Strange for chronic pain management, and PCP is Dr. Koehler. She states she has been in multiple arguments with family due to her mental status changes. Her daughter believes it is bc of polypharmacy. Vitals: WNL Pertinent PE: neuro exam WNL, CN II-XII preserved, sensation normal, motor 5/5, short term memory altered but seems it is secondary to poor concentration, pt seems distracted Labs: Electrolytes WNL, TSH mildly elevated, creatinine/BUN WNL, AST/ALT WNL, UA clear, UDS positive for opioids/benzos CT Head: No acute abnormalities CXR: WNL A/P: 1. Acute metabolic encephalopathy: likely 2/2 medication use, will hold opioids, benzos and start ASE, monitor overnight; will touch base with PCP; researched pt on [employer], order RPR 2. Chronic medications will be discussed with PCP and daughter will get medication list - Plan Date/Time: 07/15/20 0227 I, Jesus Morrow, have evaluated this patient and agree with findings/plan as outlined by finance intern resident. Pertinent changes/additions are listed here. Addendum - Attending - Attending Attestation Date/Time: 07/15/20 [id number] I personally evaluated the patient and discussed the management with Dr. Little/Cristhian. I agree with the History, Examination, Assessment and Plan documented above with any addition or exceptions noted below.
[2020-07-15] MEDS ORDERED: Aspirin Chewable 81 MG TAB ONE (11:56)
[2020-07-15] MEDS ORDERED: Acetaminophen 325 MG TAB PO PRN (12:57)
[2020-07-15] MEDS ORDERED: Acetaminophen 650 MG Suppository PR PRN (12:57)
[2020-07-15] MEDS ORDERED: Nicotine 14 MG PATCH TD PRN (12:57)
[2020-07-15] MEDS ORDERED: Lorazepam 1 MG TAB PO PRN ×2 (13:11→16:43)
[2020-07-15 13:41] LABS: Syphilis Antibody Nonreactive (Nonreactive); Syphilis Antibody Index 0.02 S/CO (<1.00 Non-Reactive)
[2020-07-15 15:38] VITALS: BMI 19.6
[2020-07-15] MEDS ORDERED: Ibuprofen 600 MG TAB PO PRN (16:43)
[2020-07-15] MEDS ORDERED: Atorvastatin Calcium 10 MG TAB PO SCH (21:00)
[2020-07-15] MEDS ORDERED: PARoxetine 20 MG TAB PO SCH (21:00)
--- NOTE | 2020-07-16 05:48 | PDOC.FM ---
- Subjective Subjective: Pt awake and alert this morning. Was able to provide a lot more detailed medical history. No complaints, wants to go home. - Objective Vital Signs & Weight: Vital Signs (12 hours) Temp Pulse Resp BP Pulse Ox 07/16/20 04:00 97.9 F 57 L 16 151/56 H 92 L 07/16/20 00:00 98.0 F 60 14 155/68 H 93 L 07/15/20 20:00 97.6 F 62 16 142/65 H 95 Weight Weight 45.586 kg I&O: 07/14/20 07/15/20 07/16/20 06:59 06:59 06:59 Intake Total 300 Balance 300 Result Diagrams: 07/15/20 09:59 07/16/20 04:59 Phys Exam - Physical Examination Constitutional: NAD HEENT: moist MMs, sclera anicteric Neck: supple, full ROM Respiratory: no wheezing, clear to auscultation bilateral Cardiovascular: RRR, no significant murmur Gastrointestinal: soft, non-tender, no distention Musculoskeletal: no edema, pulses present Neurological: non-focal, normal sensation Psychiatric: normal affect, A&O x 3 Skin: no rash, cap refill <2 seconds Dx/Plan - Plan Plan: #Encephalopathy 2/2 unknown etiology -likely due to polypharmacy, but cannot exclude neurocognitive disease -held opioids and benzos and appears to have much better cognition this morning -ASE protocol for benzo withdrawal -consider MRI outpatient to further work up neurocognitive disease #thyroid mass s/p thyroid resection of left lobe -per chart review, had another lesion noted on R side and was suggested she get FNA, patient said this was not done -TSH 5.16, T4 normal #Elevated BP w/ no diagnosis of HTN -renal bruit heard on exam -will continue to monitor BP -follow up outpatient for further work up #Depression -patient has not been taking meds regularly -continue home paxil PCP: Rodo Code: DNR IVF: SL Diet: HH Dispo: Admit stroke obs, will hold home pain meds and benzos, continue to monitor mentation. LOS<48hrs. Addendum - Attending - Attending Attestation Date/Time: 07/16/20 [id number] I personally evaluated the patient and discussed the management with Dr. Little. I agree with the History, Examination, Assessment and Plan documented above with any addition or exceptions noted below.
[2020-07-16 06:08] LABS: Anion Gap 12 mmol/L (10-20); BUN (Urea Nitrogen) 13 mg/dL (9.8-20.1); Calc. Creatinine Clearance 47 mL/min (70-130); Calcium 8.5 mg/dL (7.8-10.44); Carbon Dioxide 26 mmol/L (23-31); Chloride 109 mmol/L (98-107); Estimated GFR-MDRD 72; Glucose 93 mg/dL (83-110); Potassium 4.1 mmol/L (3.5-5.1); Sodium 143 mmol/L (136-145)
[2020-07-16 08:00] VITALS: BP 133/68; TEMP 97.8
[2020-07-16] MEDS ORDERED: Enoxaparin Sodium 40 MG/0.4 ML SYRINGE SC SCH (09:00)
[2020-07-16] MEDS ORDERED: Rosuvastatin 10 MG TAB PO SCH (09:00)
[2020-07-16] MEDS ORDERED: Lisinopril 10 MG TAB PO SCH (09:00)
--- NOTE | 2020-07-16 22:38 | DIS ---
DATE OF ADMISSION: 07/15/2020 DATE OF DISCHARGE: 07/16/2020 RESIDENT: Sera Little MD ADMITTING ATTENDING: Paul Townsend MD DISCHARGE ATTENDING: Paul Townsend MD CONSULTS: No consults. IMAGING: Brain CT, no evidence for intracranial hemorrhage or mass effect. Chest x-ray, no acute cardiopulmonary process. PRIMARY DIAGNOSES: Encephalopathy secondary to polypharmacy. SECONDARY DIAGNOSES: 1. Elevated blood pressure with no diagnosis of hypertension. 2. Thyroid mass status post thyroid resection of left lobe. DISCHARGE MEDICATIONS: 1. Nicorette gum. 2. Zofran 4 mg as needed. 3. Paxil 20 mg daily. 4. Lyrica 25 mg q.8 hours. 5. Progesterone 100 mg p.o. daily. 6. Crestor 10 mg daily. 7. Tizanidine 4 mg q.8 hours as needed. DISCONTINUED MEDICATIONS: 1. Tramadol 50 mg q.i.d. p.r.n. 2. Mulhall 10/325 q.6 p.r.n. HISTORY OF PRESENT ILLNESS: The patient is a 69-year-old female with a history of chronic pain, thyroid mass, and ovarian cancer, who presented to the ED for evaluation of confusion. The patient states that she came to the ED because she got in an argument with her and was told "she needs to go get her brain checked." Her daughter had a different story of why she went to the ED stating that the patient was confused, did not know where she was going and ended up in the ED. The patient's daughter said that over the past year, her mother has become more confused with problems with memory and change in personality, being more angry and combative. The patient seems to get angry with the daughter when the daughter is talking about her problems with memory and she states that she handles all of her medications herself and does not need any help. PDMP was reviewed and shows the patient is on chronic opioid prescriptions by Dr. Strange with Pain Management and also recently received a prescription for tramadol from Neurosurgery. She had surgery on her lower back on June 20, [address] Martin. Recently, according to PDMP, the patient was prescribed more Mulhall than she had received in the past, so it is unclear if the patient had been taking increased amounts. The family does not seem to know what she takes or how much she takes and the patient was not able to tell us herself. While in hospital, we held her opioids and her Lyrica overnight. Next morning, the patient stated she slept well with No pain. On exam, the patient was much more awake, alert, and encephalopathy improved. Neuro exam throughout the whole hospital course was benign. Nonfocal. All workup for any other causes of encephalopathy was negative. Of note, on exam, abdominal renal bruits were heard bilaterally. We made the patient aware and told to follow up with PCP. Recommended to the patient that she follow up with her PCP within a week of discharge to discuss medication management. Recommended she work with her PCP to start safe taper of pain medications. DISPOSITION: Stable. DISCHARGE INSTRUCTIONS: 1. Location: Home. 2. Diet: Heart healthy. 3. Activity: No restrictions. 4. Follow up with PCP within one week. Job ID: [id number] [facility]
== END 2020-07-16 13:34 | disposition home or self-care (01) ==
LOC: ERS 09:28 → ERHOLD 11:28 → 2SE 14:54
PROVIDERS: ADMIT Student in an Organized Health Care Education/Training Program; ATTEND Student in an Organized Health Care Education/Training Program
DX: G92 Toxic encephalopathy (principal); T50.915A Adverse effect of multiple unspecified drugs, medicaments and biological substances, initial encounter; F17.210 Nicotine dependence, cigarettes, uncomplicated; R03.0 Elevated blood-pressure reading, without diagnosis of hypertension; F32.9 Major depressive disorder, single episode, unspecified; Z79.899 Other long term (current) drug therapy; Z88.2 Allergy status to sulfonamides; Z88.5 Allergy status to narcotic agent; Z88.8 Allergy status to other drugs, medicaments and biological substances; Z66 Do not resuscitate
CPT/HCPCS: 36415; 70450; 71045; 80048; 80053; 80306; 80307; 81003; 82550; 82607; 83605; 84425; 84439; 84443; 84484; 85025; 85652; 86140; 86780; 87040; 93005; 96372; G0378; J1650

== ENCOUNTER 2020-08-21 21:02 | Emergency (ER) | payer MEDICARE, BC ==
--- NOTE | 2020-08-21 21:34 | RAD ---
THREE VIEWS LEFT FOOT: 08/21/20 HISTORY: Fall tonight with foot pain. FINDINGS: Three views of the left foot shows no evidence of acute fracture or dislocation. No degenerative changes are seen. Mild soft tissue swelling is seen. IMPRESSION: No evidence of acute osseous abnormality. POS: BEA
[2020-08-21 21:58] LABS: #Basophils 0.1 thou/uL (0.0-0.2); #Eosinphils 0.3 thou/uL (0.0-0.7); #Neutrophils 5.7 thou/uL (1.40-6.50); %Basophils 0.7 % (0.0-1.0); %Eosinophils 3.4 % (0.0-10.0); %Lymphocytes 29.8 % (21.0-51.0); %Monocytes 9.7 % (0.0-10.0); %Neutrophils 56.4 % (42.0-75.0); Hemoglobin 11.4 g/dL (12.0-16.0); Mean Corpuscular HGB CONC 32.6 g/dL (32.0-36.0); Mean Corpuscular Volume 95.3 fL (78.0-98.0); Platelet Count 362 thou/uL (130-400); RBC Distribution Width 11.9 % (11.5-14.5); Red Blood Cell (RBC) Count 3.68 mill/uL (4.20-5.40); White Blood Cell (WBC) Count 10.1 thou/uL (4.8-10.8)
[2020-08-21 22:16] LABS: ALT (SGPT) 7 U/L (8-55); AST (SGOT) 12 U/L (5-34); Albumin 3.3 g/dL (3.4-4.8); Alkaline Phosphatase 68 U/L (40-110); Anion Gap 13 mmol/L (10-20); BUN (Urea Nitrogen) 19 mg/dL (9.8-20.1); Bilirubin, Total Less than 0.2 mg/dL (0.2-1.2); Calc. Creatinine Clearance 0 mL/min (70-130); Calcium 8.3 mg/dL (7.8-10.44); Carbon Dioxide 27 mmol/L (23-31); Chloride 108 mmol/L (98-107); Estimated GFR-MDRD 47; Globulin 2.3 g/dL (2.4-3.5); Glucose 121 mg/dL (83-110); Potassium 4.1 mmol/L (3.5-5.1); Protein, Total 5.6 g/dL (6.0-8.3); Sodium 144 mmol/L (136-145)
--- NOTE | 2020-08-22 06:28 | CT ---
CT OF THE BRAIN WITHOUT CONTRAST: Date: 08/21/2020 COMPARISON: 07/15/2020. HISTORY: Fall with head trauma. TECHNIQUE: Multiple contiguous axial images were obtained in a CT of the brain without contrast. FINDINGS: The brain is normal in morphology and attenuation without focal lesions or confluent areas of infarct ion. There is no evidence of hydrocephalus, intracranial hemorrhage, or extra-axial fluid collection. The calvarium and overlying soft tissues are unremarkable. The visualized paranasal sinuses and masto id air cells are well aerated. IMPRESSION: No evidence of acute intracranial abnormality. POS: BEA
--- NOTE | 2020-08-22 06:30 | RAD ---
2 VIEWS LEFT HIP: Date: 08/21/2020 COMPARISON: None. HISTORY: Fall with left hip pain. FINDINGS: Two views of the left hip shows no evidence of acute fracture or dislocation. Mild soft tissue swelli ng is seen. No degenerative changes are present. IMPRESSION: No evidence of acute osseous abnormality. POS: EAA
--- NOTE | 2020-08-22 06:30 | RAD ---
SINGLE VIEW PELVIS: Date: 08/21/2020 COMPARISON: None. HISTORY: Fall with left hip pain. FINDINGS: Single view of the pelvis shows no evidence of acute fracture or dislocation. Moderate degenerative c hanges are seen in the lumbar spine. No degenerative change is seen in either hip. IMPRESSION: No evidence of acute osseous abnormality. POS: EAA
--- NOTE | 2020-08-22 06:32 | RAD ---
3 VIEWS LUMBOSACRAL SPINE: Date: 08/21/2020 COMPARISON: None. HISTORY: Fall with back pain. FINDINGS: Three views of the lumbosacral spine shows moderate degenerative changes of the lower lumbosacral spi ne. This includes intervertebral disc space narrowing and osteophyte formation, as well as posterior facet arthrosis. No evidence of acute fracture or subluxation. Kissing stents are seen in the common iliac arteries. The sacroiliac joints are unremarkable. IMPRESSION: Moderate degenerative changes of the lumbar spine without acute osseous abnormality. POS: BEA
--- NOTE | 2020-08-22 06:46 | CT ---
CT OF THE CERVICAL SPINE WITHOUT CONTRAST: Date: 08/21/2020 HISTORY: Fall with head trauma and neck pain. TECHNIQUE: Multiple contiguous axial images were obtained in a CT of the cervical spine without contrast. Sagitt al and coronal reformats were performed. FINDINGS: Moderate degenerative changes are seen in the cervical spine. The vertebral bodies demonstrate normal height and alignment without acute fracture or subluxation. No prevertebral soft tissue swelling is seen. The posterior facets are well aligned. Normal alignment of the skull base with the cervical spine is seen. Emphysematous changes are seen in the lung apices. Calcifications are seen in the carotid arteries. IMPRESSION: No evidence of acute osseous abnormality of the cervical spine. POS: EAA
== END 2020-08-22 01:11 | disposition home or self-care (01) ==
LOC: ERS 21:02
DX: S90.32XA Contusion of left foot, initial encounter (principal); M54.5 Low back pain; Z85.43 Personal history of malignant neoplasm of ovary; Z85.850 Personal history of malignant neoplasm of thyroid; W19.XXXA Unspecified fall, initial encounter
CPT/HCPCS: 36415; 70450; 72100; 72125; 72170; 80053; 84484; 85025; 85652; 86140

== ENCOUNTER 2020-12-31 13:42 | Outpatient (CLI) | payer MEDICARE | END 2020-12-31 13:43 | disposition home or self-care (01) | LOC: BICRAD 13:42 | PROVIDERS: ATTEND Family Medicine | DX: J20.9 Acute bronchitis, unspecified (principal); J44.9 Chronic obstructive pulmonary disease, unspecified; I70.90 Unspecified atherosclerosis | CPT/HCPCS: 71046 ==

== ENCOUNTER 2021-02-27 14:55 | Outpatient (CLI) | payer MEDICARE, BC | END 2021-02-27 14:56 | disposition home or self-care (01) | LOC: BICMAMMO 14:55 | PROVIDERS: ATTEND Family Medicine | DX: N63.10 Unspecified lump in the right breast, unspecified quadrant (principal); R92.8 Other abnormal and inconclusive findings on diagnostic imaging of breast | CPT/HCPCS: 76642; 77066; G0279 ==

== ENCOUNTER 2021-08-20 09:31 | Emergency (ER) | payer BC, MEDICARE ==
[2021-08-20] MEDS ORDERED: Ketorolac Tromethamine 30 MG/ML VIAL ONE (11:49)
== END 2021-08-20 12:00 | disposition home or self-care (01) ==
LOC: ERS 09:31
DX: S90.32XA Contusion of left foot, initial encounter (principal); R41.3 Other amnesia; W10.9XXA Fall (on) (from) unspecified stairs and steps, initial encounter; Y93.01 Activity, walking, marching and hiking; Z85.43 Personal history of malignant neoplasm of ovary; Z85.850 Personal history of malignant neoplasm of thyroid
CPT/HCPCS: 96372; J1885

== ENCOUNTER 2021-09-25 13:21 | Outpatient (CLI) | payer MEDICARE | END 2021-09-25 13:22 | disposition home or self-care (01) | LOC: BICMAMMO 13:21 | PROVIDERS: ATTEND Family Medicine | DX: M81.0 Age-related osteoporosis without current pathological fracture (principal); S92.902A Unspecified fracture of left foot, initial encounter for closed fracture; M85.89 Other specified disorders of bone density and structure, multiple sites | CPT/HCPCS: 77080 ==

== ENCOUNTER 2022-01-19 11:38 | Outpatient (CLI) | payer MEDICARE | END 2022-01-19 11:39 | disposition home or self-care (01) | LOC: BICRAD 11:38 | PROVIDERS: ATTEND Family Medicine | DX: S32.2XXB Fracture of coccyx, initial encounter for open fracture (principal); M47.818 Spondylosis without myelopathy or radiculopathy, sacral and sacrococcygeal region | CPT/HCPCS: 72220 ==

== ENCOUNTER 2022-03-10 10:47 | Outpatient (CLI) | payer MEDICARE | END 2022-03-10 10:48 | disposition home or self-care (01) | LOC: BICRAD 10:47 | PROVIDERS: ATTEND Family Medicine | DX: S62.92XA Unspecified fracture of left hand, initial encounter for closed fracture (principal) ==

== ENCOUNTER 2022-04-18 18:18 | Inpatient (IN) | payer MEDICARE ==
[2022-04-18 18:54] LABS: %Basophils 0.6 % (0.0-1.0); %Eosinophils 1.3 % (0.0-10.0); %Lymphocytes 23.9 % (21.0-51.0); %Monocytes 11.9 % (0.0-10.0); %Neutrophils 62.2 % (42.0-75.0); Hemoglobin 13.8 g/dL (12.0-16.0); Mean Corpuscular HGB CONC 33.7 g/dL (32.0-36.0); Mean Corpuscular Hemoglobin 31.6 pg (27.0-31.0); Mean Corpuscular Volume 93.9 fL (78.0-98.0); Mean Platelet Volume 6.5 fL (7.4-10.4); Platelet Count 385 thou/uL (130-400); RBC Distribution Width 12.7 % (11.5-14.5); Red Blood Cell (RBC) Count 4.35 mill/uL (4.20-5.40); White Blood Cell (WBC) Count 9.4 thou/uL (4.8-10.8)
[2022-04-18 19:09] LABS: ALT (SGPT) 10 U/L (8-55); AST (SGOT) 15 U/L (5-34); Albumin 3.6 g/dL (3.4-4.8); Alkaline Phosphatase 73 U/L (40-110); Anion Gap 13 mmol/L (10-20); BUN (Urea Nitrogen) 10 mg/dL (9.8-20.1); Bilirubin, Total 0.6 mg/dL (0.2-1.2); CK (CPK) 52 U/L (29-168); Calc. Creatinine Clearance 0 mL/min (70-130); Calcium 8.5 mg/dL (7.8-10.44); Carbon Dioxide 25 mmol/L (23-31); Chloride 100 mmol/L (98-107); Estimated GFR 71; Globulin 2.5 g/dL (2.4-3.5); Glucose 101 mg/dL (83-110); Lipase 7 U/L (8-78); Magnesium 1.7 mg/dL (1.6-2.6); Potassium 3.7 mmol/L (3.5-5.1); Protein, Total 6.1 g/dL (5.8-8.1); Sodium 134 mmol/L (136-145)
[2022-04-18] MEDS ORDERED: Labetalol HCl 100 MG/20 ML VIAL ONE (19:39)
[2022-04-18 21:05] LABS: #Basophils 0.1 thou/uL (0.0-0.2); #Eosinphils 0.1 thou/uL (0.0-0.7); #Lymphocytes 2.3 thou/uL (1.20-3.40); #Monocytes 1.1 thou/uL (0.11-0.59); #Neutrophils 5.9 thou/uL (1.40-6.50)
[2022-04-18 22:29] LABS: Troponin I Less than 0.010 ng/mL (< 0.028)
[2022-04-18 22:50] VITALS: BMI 16.4
[2022-04-19] MEDS: hydrALAZINE 20 MG/ML VIAL SLOW IVP PRN ×3 (00:17→14:52)
[2022-04-19 01:15] LABS: Troponin I Less than 0.010 ng/mL (< 0.028)
[2022-04-19 07:49] LABS: Hemoglobin A1c 5.7 % (4.0-6.0)
[2022-04-19 08:05] LABS: Cardiac Risk 2.6 (Less than 4.5)
[2022-04-19] MEDS ORDERED: Regadenoson 0.4 MG/5 ML SYRINGE ONE (12:00)
[2022-04-19] MEDS ORDERED: Acetaminophen 325 MG TAB PO PRN (13:15)
[2022-04-19] MEDS ORDERED: Lisinopril 10 MG TAB PO SCH (13:15)
[2022-04-19] MEDS ORDERED: Lisinopril 20 MG TAB PO SCH (14:30)
[2022-04-19] MEDS ORDERED: traMADol HCl 50 MG TAB PO PRN (15:55)
[2022-04-19] MEDS ORDERED: tiZANidine HCl 4 MG TAB PO PRN (16:16)
[2022-04-19] MEDS ORDERED: hydrOXYzine 25 MG TAB PO PRN (16:28)
[2022-04-19] MEDS ORDERED: Ibuprofen 600 MG TAB PO PRN (19:01)
[2022-04-19] MEDS ORDERED: Atorvastatin Calcium 10 MG TAB PO SCH (21:00)
[2022-04-19] MEDS ORDERED: Gabapentin 400 MG CAP PO SCH (21:00)
[2022-04-19] MEDS ORDERED: Atorvastatin Calcium 40 MG TAB PO SCH (21:00)
[2022-04-19] MEDS ORDERED: PARoxetine 20 MG TAB PO SCH (21:00)
[2022-04-20] MEDS ORDERED: Lisinopril 20 MG TAB PO SCH ×2 (09:00)
[2022-04-20] MEDS ORDERED: Amlodipine 5 MG TAB PO SCH (09:00)
[2022-04-20 11:38] VITALS: TEMP 97.3
[2022-04-20] MEDS: hydrALAZINE 20 MG/ML VIAL SLOW IVP PRN (11:51)
[2022-04-20 12:38] VITALS: BP 132/63
== END 2022-04-20 14:15 | disposition home or self-care (01) | DRG 305 ==
LOC: ERS 18:18 → 2SW 21:04 → OBSVTOIN 04-20 11:17
PROVIDERS: ADMIT Student in an Organized Health Care Education/Training Program; ATTEND Family Medicine
DX: I16.0 Hypertensive urgency (principal); E78.5 Hyperlipidemia, unspecified; Z20.822 Contact with and (suspected) exposure to COVID-19; R41.3 Other amnesia; Z88.2 Allergy status to sulfonamides; Z88.5 Allergy status to narcotic agent; Z91.041 Radiographic dye allergy status; Z79.899 Other long term (current) drug therapy; Z90.710 Acquired absence of both cervix and uterus; Z85.43 Personal history of malignant neoplasm of ovary
CPT/HCPCS: 36415; 71045; 78452; 80053; 80061; 82550; 83036; 83690; 83735; 84443; 84484; 85025; 93005; 93017; 96374; 96375; 96376; A9500; G0378; J0360; J2785; U0003; U0005

== ENCOUNTER 2022-05-21 12:41 | Outpatient (CLI) | payer MEDICARE | END 2022-05-21 12:42 | disposition home or self-care (01) | LOC: BICRAD 12:41 | PROVIDERS: ATTEND Family Medicine | DX: R05.9 Cough, unspecified (principal) | CPT/HCPCS: 71046 ==

== ENCOUNTER 2022-08-19 14:25 | Outpatient (CLI) | payer MEDICARE | END 2022-08-19 14:26 | disposition home or self-care (01) | LOC: BICRAD 14:25 | PROVIDERS: ATTEND Family Medicine | DX: R07.9 Chest pain, unspecified (principal); M19.90 Unspecified osteoarthritis, unspecified site; J98.4 Other disorders of lung | CPT/HCPCS: 71046 ==